=== PATIENT | female | born 1935 | race Caucasian/White ===

== ENCOUNTER 2016-05-14 12:25 | Inpatient (IN) | payer MEDICARE, OTHER ==
[2016-05-14] MEDS ORDERED: ACETAMINOPHEN 325 MG TABLET PO STA (13:04)
[2016-05-14] MEDS ORDERED: ACETAMINOPHEN 325 MG TABLET PO ONE (13:19)
[2016-05-14] MEDS ORDERED: HYDROcod/ACETAM 5/325 MG TABLET PO PRN (15:32)
[2016-05-14] MEDS ORDERED: ONDANSETRON 4 MG/2 ML VIAL IVP PRN (15:32)
[2016-05-14] MEDS ORDERED: guaiFENesin/CODEINE 5 ML UDC PO PRN (15:32)
[2016-05-14] MEDS ORDERED: HYDROcod/ACETAM 10 MG/325 MG TABLET PO PRN (15:32)
[2016-05-14] MEDS ORDERED: ACETAMINOPHEN 325 MG TABLET PO PRN (15:32)
[2016-05-14] MEDS ORDERED: SODIUM CHLORIDE 0.9% 1,000 ML IV SCH (15:32)
[2016-05-14] MEDS: SODIUM CHLORIDE FLUSH 0.9% 10 ML SYRINGE IVP SCH (15:48)
[2016-05-14] MEDS: LACTOB/S.THERMOPHL/BIFIDO CAPSULE PO SCH (16:22)
[2016-05-14] MEDS: SODIUM CHLORIDE FLUSH 0.9% 10 ML SYRINGE IVP PRN ×2 (16:23→21:55)
[2016-05-14] MEDS: cloNIDine 0.1 MG TABLET PO SCH (21:11)
[2016-05-14] MEDS: PANTOPRAZOLE 40 MG TABLET PO SCH (21:11)
[2016-05-14] MEDS: POTASSIUM CHLOR 10 MEQ/100 ML 100 ML IV SCH (21:11)
[2016-05-14] MEDS ORDERED: FUROSEMIDE 20 MG/2 ML VIAL IVP SCH (21:46)
[2016-05-14] MEDS ORDERED: NITROGLYCERIN 2% PASTE TOP ONE (21:56)
[2016-05-14] MEDS ORDERED: hydrALAZINE INJ 20 MG/ML VIAL IVP SCH ×2 (22:23)
[2016-05-14] MEDS: NITROGLYCERIN 2% PASTE TOP SCH (22:58)
[2016-05-15] MEDS: SODIUM CHLORIDE FLUSH 0.9% 10 ML SYRINGE IVP SCH ×4 (00:42→21:52)
[2016-05-15] MEDS: POTASSIUM CHLOR 10 MEQ/100 ML 100 ML IV SCH ×2 (00:43→06:03)
[2016-05-15] MEDS: IPRATROPIUM/ALBUTEROL 3 ML NEB INH PRN (07:34)
[2016-05-15] MEDS: DEXAMETHASONE 4 MG TABLET PO SCH (09:05)
[2016-05-15] MEDS: cloNIDine 0.1 MG TABLET PO SCH ×2 (09:05→21:51)
[2016-05-15] MEDS: ATENOLOL 25 MG TABLET PO SCH (09:05)
[2016-05-15] MEDS: DONEPEZIL 5 MG TABLET PO SCH (09:05)
[2016-05-15] MEDS: CITALOPRAM 10 MG TABLET PO SCH (09:06)
[2016-05-15] MEDS: POLYETHYLENE GLYCOL 3350 17 GM PACKET PO SCH (09:06)
[2016-05-15] MEDS: CHOLECALCIFEROL 400 UNIT TABLET PO SCH (09:07)
[2016-05-15] MEDS: MULTIVITAMIN TABLET PO SCH (09:07)
[2016-05-15] MEDS: FERROUS SULFATE 325 MG TABLET PO SCH (09:07)
[2016-05-15] MEDS: PANTOPRAZOLE 40 MG TABLET PO SCH ×2 (09:08→21:51)
[2016-05-15] MEDS: OMEGA-3 ACID ETHYL ESTERS 1 GM CAPSULE PO SCH (09:08)
[2016-05-15] MEDS: LACTOB/S.THERMOPHL/BIFIDO CAPSULE PO SCH ×2 (09:08→17:15)
[2016-05-15] MEDS: CALCIUM CARBONATE CHEW 500 MG TABLET PO SCH (09:09)
[2016-05-15] MEDS: POTASSIUM CHLORIDE 10 MEQ CAPSULE PO SCH (09:09)
[2016-05-15] MEDS: ENOXAPARIN 30 MG/0.3 ML SYRINGE SUBQ SCH (09:10)
[2016-05-15] MEDS: FLAXSEED OIL 1300 MG PO SCH (09:10)
[2016-05-15] MEDS: LIDOCAINE PATCH 5% TOP SCH (09:10)
[2016-05-15] MEDS: NITROGLYCERIN 2% PASTE TOP SCH (21:50)
[2016-05-16] MEDS: SODIUM CHLORIDE FLUSH 0.9% 10 ML SYRINGE IVP SCH ×2 (06:54→09:15)
[2016-05-16] MEDS ORDERED: levoFLOXacin 250 MG TABLET PO SCH (09:00)
[2016-05-16] MEDS: CITALOPRAM 10 MG TABLET PO SCH (09:07)
[2016-05-16] MEDS: POLYETHYLENE GLYCOL 3350 17 GM PACKET PO SCH (09:07)
[2016-05-16] MEDS: ATENOLOL 25 MG TABLET PO SCH (09:08)
[2016-05-16] MEDS: DEXAMETHASONE 4 MG TABLET PO SCH (09:09)
[2016-05-16] MEDS: DONEPEZIL 5 MG TABLET PO SCH (09:09)
[2016-05-16] MEDS: CHOLECALCIFEROL 400 UNIT TABLET PO SCH (09:09)
[2016-05-16] MEDS: cloNIDine 0.1 MG TABLET PO SCH (09:09)
[2016-05-16] MEDS: FERROUS SULFATE 325 MG TABLET PO SCH (09:11)
[2016-05-16] MEDS: MULTIVITAMIN TABLET PO SCH (09:11)
[2016-05-16] MEDS: POTASSIUM CHLORIDE 10 MEQ CAPSULE PO SCH (09:12)
[2016-05-16] MEDS: PANTOPRAZOLE 40 MG TABLET PO SCH (09:12)
[2016-05-16] MEDS: OMEGA-3 ACID ETHYL ESTERS 1 GM CAPSULE PO SCH (09:12)
[2016-05-16] MEDS: LACTOB/S.THERMOPHL/BIFIDO CAPSULE PO SCH (09:13)
[2016-05-16] MEDS: CALCIUM CARBONATE CHEW 500 MG TABLET PO SCH (09:14)
[2016-05-16] MEDS: ENOXAPARIN 30 MG/0.3 ML SYRINGE SUBQ SCH (09:15)
[2016-05-16] MEDS: FLAXSEED OIL 1300 MG PO SCH (09:16)
[2016-05-16] MEDS: LIDOCAINE PATCH 5% TOP SCH (09:16)
[2016-05-16] MEDS: IPRATROPIUM/ALBUTEROL 3 ML NEB INH PRN (10:26)
== END 2016-05-16 13:18 | disposition home or self-care (01) | DRG 193 ==
DX: J18.1 Lobar pneumonia, unspecified organism (principal); J81.0 Acute pulmonary edema; N17.9 Acute kidney failure, unspecified; E87.1 Hypo-osmolality and hyponatremia; C90.00 Multiple myeloma not having achieved remission; E87.6 Hypokalemia; E86.0 Dehydration; R09.02 Hypoxemia; I10 Essential (primary) hypertension; I25.10 Atherosclerotic heart disease of native coronary artery without angina pectoris; G47.30 Sleep apnea, unspecified; K21.9 Gastro-esophageal reflux disease without esophagitis; F32.9 Major depressive disorder, single episode, unspecified; K59.09 Other constipation; F03.90 Unspecified dementia, unspecified severity, without behavioral disturbance, psychotic disturbance, mood disturbance, and anxiety; Z66 Do not resuscitate; Z85.3 Personal history of malignant neoplasm of breast; Z95.1 Presence of aortocoronary bypass graft

== ENCOUNTER 2016-06-11 11:22 | Outpatient (CLI) | payer MEDICARE, OTHER | END 2016-06-11 11:23 | disposition home or self-care (01) | DX: J15.9 Unspecified bacterial pneumonia (principal); R53.83 Other fatigue; R63.0 Anorexia ==